=== PATIENT | female | born 1960 | race Caucasian/White ===

== ENCOUNTER 2016-09-05 04:26 | Emergency (ER) | payer SELFPAY ==
[~2016-09-05] VITALS: Ht 165.1 cm; Wt 110.0 kg
[~2016-09-05 04:26] MED LIST: CIPRO500 MG OR; FLAGYL500 MG OR; LORTAB 5 OR
[2016-09-05 05:21] LABS: HEMATOCRIT 40.3 % (37.0-47.0); HEMOGLOBIN 13.4 g/dl (12.0-16.0); IMMATURE GRANULOCYTES 0.3 % (0.0-1.0); MEAN CORPUSCULAR HGB 29.3 pG CALC (26.0-32.0); MEAN CORPUSCULAR HGB CONC 33.3 g/L CALC (32.0-36.0); NEUT# 5.35 thou/uL (2.00-7.15); RED BLOOD COUNT 4.58 mill/uL (4.20-5.60); RED CELL DISTRI WIDTH 13.2 % (11.5-15.5)
[2016-09-05 05:23] LABS: URINE BILIRUBIN - DIPSTICK NEGATIVE (NEGATIVE); URINE BLOOD DIPSTICK TRACE-INTACT (NEGATIVE); URINE CLARITY CLEAR; URINE COLOR YELLOW; URINE GLUCOSE - DIPSTICK NEGATIVE (NEGATIVE); URINE KETONE NEGATIVE (NEGATIVE); URINE LEUK ESTERASE NEGATIVE (NEGATIVE); URINE NITRITE - DIPSTICK NEGATIVE (Negative); URINE PH 5.5 (4.5-8.0); URINE PROTEIN - DIPSTICK NEGATIVE (NEG-TRACE); URINE SPECIFIC GRAVITY 1.015; URINE UROBILINOGEN - DIPSTICK 0.2 E.U./dL (0.2)
[2016-09-05 05:26] LABS: BARBITURATES NEGATIVE (NEGATIVE); COCAINE NEGATIVE (NEGATIVE); METHADONE NEGATIVE (NEGATIVE); OXCYCODONE NEGATIVE (NEGATIVE); TETRAHYDROCANNABIONOL NEGATIVE (NEGATIVE); TRICYLIC ANTIDEPRESSANTS NEGATIVE (NEGATIVE)
[2016-09-05 05:42] LABS: ALBUMIN 4.1 g/dL (3.2-5.0); ALKALINE PHOSPHATASE 90 u/l (38-126); ANION GAP 15 (6-22 (CALC)); BILIRUBIN, TOTAL 0.6 mg/dL (0.0-1.4); BUN 17 mg/dL (7-17); BUN/CREATININE RATIO 30 (12-20 (CALC)); CARBON DIOXIDE 24 mmol/l (22-30); CHLORIDE 106 mmol/l (95-108); CREATININE 0.6 mg/dL (0.5-1.0); ETHYL ALCOHOL 0 mg/dl (0-30); GFR > 60 ML/MIN (>=60 (CALC)); GFR FOR AFR.AMER. > 60 ML/MIN (>=60 (CALC)); GLUCOSE 136 mg/dL (65-105); POTASSIUM 4.1 mmol/l (3.5-5.1); SGOT/AST 18 u/l (14-36); SGPT/ALT 34 u/l (9-52); SODIUM 141 mmol/l (137-146); TOTAL PROTEIN 7.2 g/dL (6.3-8.2)
[2016-09-05] MEDS ORDERED: XANAX0.5 MG PO (06:03)
[2016-09-05 06:35] VITALS: BP 135/73
== END 2016-09-05 06:35 | disposition home or self-care (01) | DRG 880 ==
LOC: ED 04:26
PROVIDERS: Emergency Medicine
DX: F41.0 Panic disorder [episodic paroxysmal anxiety] (principal)
CPT/HCPCS: J2060

== ENCOUNTER 2019-12-25 15:53 | Emergency (ER) | payer OTHER ==
[~2019-12-25] VITALS: Ht 165.1 cm; Wt 105.0 kg
[~2019-12-25 15:53] MED LIST changes: +XANAX0.5 MG PO
[2019-12-25] MEDS ORDERED: CEPHALEXIN500 M1 PO (16:09)
[2019-12-25 16:50] VITALS: BP 139/75
[2019-12-25] MEDS ORDERED: METFORMIN500 M2 PO (16:55)
== END 2019-12-25 16:50 | disposition home or self-care (01) | DRG 603 ==
LOC: ED 15:53
DX: L03.115 Cellulitis of right lower limb (principal); E11.9 Type 2 diabetes mellitus without complications; I10 Essential (primary) hypertension; E78.5 Hyperlipidemia, unspecified

== ENCOUNTER 2024-02-18 05:42 | Emergency (ER) | payer SELFPAY ==
[~2024-02-18] VITALS: Ht 160 cm; Wt 104.0 kg
[~2024-02-18 05:42] MED LIST changes: +CEPHALEXIN500 M1 PO; +GLIMEPIRIDE2 MG PO; +HYDROCHLOROT12.5 MG PO; +LIPITOR10 M1 PO; +METFORMIN500 M2 PO; +OMEPRAZOLE DR20 MG; +TELMISARTAN40 MG
[2024-02-18 05:59] VITALS: BP 125/73
[2024-02-18] MEDS ORDERED: ASPIRIN 81 MG/TAB PO ONE (06:00)
[2024-02-18 06:07] VITALS: BP 108/71
[2024-02-18] MEDS ORDERED: OZEMPIC2 MG SC (06:15)
[2024-02-18 06:17] LABS: BASO% 0.1 % (0-3); EOS% 2.4 % (0-8); HEMATOCRIT 41.5 % (37.0-47.0); HEMOGLOBIN 13.3 g/dl (12.0-16.0); IMMATURE GRANULOCYTES 0.1 % (0.0-5.0); LYMPH% 33.9 % (15-41); MEAN CELL VOLUME 92.6 fL CALC (80.0-100.0); MEAN CORPUSCULAR HGB 29.7 pG CALC (26.0-32.0); MONO% 5.7 % (2-13); NEUT# 3.92 thou/uL (2.00-7.15); NEUT% 57.8 % (42-76); RED BLOOD COUNT 4.48 mill/uL (4.20-5.60); RED CELL DISTRI WIDTH 12.6 % (11.5-15.5)
[2024-02-18] MEDS ORDERED: ALUM & MAG HYDROX-SIMETHICONE 30 ML PO ONE (06:20)
[2024-02-18 06:32] LABS: ALBUMIN 4.1 g/dL (3.2-5.0); ALKALINE PHOSPHATASE 106 u/l (38-126); ANION GAP 12 (6-22 (CALC)); BILIRUBIN, TOTAL 0.6 mg/dL (0.02-1.3); BUN 25 mg/dL (8-23); BUN/CREATININE RATIO 37 (12-20 (CALC)); CARBON DIOXIDE 26 mmol/l (22-30); CHLORIDE 106 mmol/l (95-108); CREATININE 0.7 mg/dL (0.5-1.0); ESTIMATED GFR 98 ML/MIN (>=90 (CALC)); LIPASE 162 u/l (23-300); POTASSIUM 3.8 mmol/l (3.5-5.1); SGOT/AST 27 u/l (9-36); SODIUM 141 mmol/l (137-146); TOTAL PROTEIN 7.2 g/dL (6.3-8.2)
[2024-02-18] MEDS ORDERED: FAMOTIDINE20 M3 PO (07:00)
[2024-02-18 07:31] VITALS: BP 108/71
== END 2024-02-18 07:32 | disposition home or self-care (01) | DRG 313 ==
LOC: ED 05:42
PROVIDERS: Family Medicine
DX: R07.9 Chest pain, unspecified (principal); I10 Essential (primary) hypertension; E11.9 Type 2 diabetes mellitus without complications; E78.5 Hyperlipidemia, unspecified; E66.9 Obesity, unspecified; K21.9 Gastro-esophageal reflux disease without esophagitis; F41.9 Anxiety disorder, unspecified; Z79.85 Long-term (current) use of injectable non-insulin antidiabetic drugs; Z82.49 Family history of ischemic heart disease and other diseases of the circulatory system